=== PATIENT | female | born 1985 | race Caucasian/White ===

== ENCOUNTER 2016-05-29 11:55 | Emergency (ER) | payer MEDICAID ==
[2016-05-29 12:00] VITALS: RESP 16; O2SAT 97
--- NOTE | 2016-05-29 13:21 | EDPHY ---
H & P Stated Complaint: irregular menstrual bleeding/spotting last 3 months Time Seen by Provider: 05/29/16 12:16 HPI/ROS: CHIEF COMPLAINT: abnormal bleeding HISTORY OF PRESENT ILLNESS: 31-year-old female presents to the emergency department complaining of irregular menstrual periods x4 months. Patient states that she will bleed for up to 3 weeks at time only by 2 weeks of not bleeding. Patient states that her bleeding is no heavier than usual, no clots, she denies abdominal cramping. No nausea, vomiting or diarrhea. Patient denies vaginal discharge. She is sexually active. Denies previous history of abnormal menses. REVIEW OF SYSTEMS: A comprehensive 10 point review of systems is otherwise negative aside from elements mentioned in the history of present illness. Source: Patient Exam Limitations: No limitations - Personal History LMP (Females 10-55): Now Current Tetanus/Diphtheria Vaccine: Yes - Medical/Surgical History Hx Asthma: No Hx Chronic Respiratory Disease: No Hx Diabetes: No Hx Cardiac Disease: No Hx Renal Disease: No Hx Cirrhosis: No Hx Alcoholism: No Hx HIV/AIDS: No Hx Splenectomy or Spleen Trauma: No Other PMH: anxiety - Social History Smoking Status: Current every day smoker - Physical Exam Exam: Physical Exam Gen: Alert and Oriented, NAD HEENT: PERRL, moist mucous membranes NECK: no meningismus CV: regular rate and regular rhythm PULM: CTAB, no wheezes ABDOMEN: soft, non tender to palpation, BS present BACK: No CVA tenderness NEURO: Neurologically grossly intact EXTREMITIES: normal appearing SKIN: no rash or break in skin on exposed skin PSYCH: answers questions appropriately. Constitutional: Initial Vital Signs Temperature (C) 37 C 05/29/16 11:58 Heart Rate 88 05/29/16 11:58 Respiratory Rate 16 05/29/16 11:58 Blood Pressure 114/85 H 05/29/16 11:58 O2 Sat (%) 97 05/29/16 11:58 O2 Delivery Mode Room Air Allergies/Adverse Reactions: No Known Allergies Allergy (Unverified 05/29/16 11:58) Home Medications: Medication Instructions Recorded GABAPENTIN 05/29/16 Medical Decision Making ED Course/Re-evaluation: 31-year-old nontoxic-appearing female with normal vital signs presents to the emergency department complaining of irregular menstrual periods for the past 4 months. Patient denies abdominal cramping or pain, no nausea, vomiting or diarrhea, no urinary symptoms. Urine is negative, urinalysis is negative, i-STAT shows a hemoglobin of 14.3 and hematocrit of 42. Patient is discharged home with plans to follow up with OBGYN. She has been given a referral for the OBGYN on-call. She is given return precautions for any fevers, abdominal pain, vomiting, any other questions or concerns. Differential Diagnosis: Diagnosis considered but not limited to dysfunctional uterine bleeding, hormone imbalance, uterine fibroid - Data Points Laboratory Results: 05/29/16 13:13 POC Hgb 14.3 gm/dL (12.3-15.9) POC Hct 42 % (35.5-47.5) POC Sodium 142 mEq/L (134-144) POC Potassium 4.2 mEq/L (3.3-5.0) POC Chloride 104 mEq/L (96-108) POC BUN 10 mg/dL (7-23) POC Creatinine 0.8 mg/dL (0.6-1.2) POC Glucose 86 mg/dL (70-100) Point of Care Test Results: 05/29/16 13:13 POC Sodium 142 POC Potassium 4.2 POC Chloride 104 POC BUN 10 POC Creatinine 0.8 POC Glucose 86 Departure - Departure Disposition: Home, Routine, Self-Care Clinical Impression: Dysfunctional uterine bleeding Instructions: Dysfunctional Uterine Bleeding (ED) Additional Instructions: Take 400 mg of ibuprofen every 8 hours with food for 3-5 days. This can help decrease your bleeding. Follow-up with the OBGYN listed, call tomorrow to schedule this appointment. Return to the emergency department for any abdominal pain, increased bleeding, shortness of breath, any other questions or concerns. Stop smoking cigarettes! 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
[2016-05-29 14:14] VITALS: BP 133/70; PULSE 76; TEMP 97.7
== END 2016-05-29 14:14 | disposition home or self-care (01) ==
DX: N93.8 Other specified abnormal uterine and vaginal bleeding (principal); F17.200 Nicotine dependence, unspecified, uncomplicated
CPT/HCPCS: 82947-QW

== ENCOUNTER → 2016-07-21 | Outpatient (CLI) | payer MEDICAID | LOC: BRMIMAGING 08:37 | PROVIDERS: ATTEND Obstetrics & Gynecology | DX: N83.01 Follicular cyst of right ovary (principal) | CPT/HCPCS: 76856-PO ==